=== PATIENT | male | born 1960 | race Caucasian/White ===

== ENCOUNTER 2020-05-20 11:34 | Emergency (ER) | payer MEDICAID ==
[~2020-05-20] VITALS: Ht 182.9 cm; Wt 80.0 kg
[2020-05-20] MEDS ORDERED: IBUPROFEN 600MG TABLET PO STA (12:01)
[2020-05-20] MEDS ORDERED: OSELTAMIVIR 30MG CAPSULE PO ONE (12:45)
[2020-05-20] MEDS ORDERED: OSELTAMIVIR 75MG CAPSULE PO ONE (12:45)
[2020-05-20 12:55] VITALS: BP 135/80
== END 2020-05-20 13:04 | disposition home or self-care (01) ==
LOC: ER 11:48
DX: B34.9 Viral infection, unspecified (principal); M79.10 Myalgia, unspecified site; Z20.828 Contact with and (suspected) exposure to other viral communicable diseases; F12.10 Cannabis abuse, uncomplicated; F14.10 Cocaine abuse, uncomplicated; F15.10 Other stimulant abuse, uncomplicated; F17.290 Nicotine dependence, other tobacco product, uncomplicated; J34.89 Other specified disorders of nose and nasal sinuses; R11.0 Nausea; Z59.0 Homelessness
CPT/HCPCS: 71045; 87635; 99284; 99406